=== PATIENT | male | born 1990 | race Two or more races ===

== ENCOUNTER 2016-06-27 12:54 | Emergency (ER) | payer OTHER ==
[~2016-06-27] VITALS: Ht 170.2 cm; Wt 65.8 kg
[~2016-06-27 12:54] MED LIST: LANTUS SOL100 UNIT/1 SUBQ
--- NOTE | 2016-06-27 13:14 | Emergency Room Report ---
History of Present Illness General Chief Complaint: Pain Source: Patient, EMS (LEON SUAREZ.Raeann) Present Illness HPI Patient presents by paramedics escorted by police as well Does initially a report of possible suicidal report of the police at this time reported the patient was essentially stating that he wanted to get attention from the family Patient is a history of being at [facility] for several days and discharged home this past Tuesday Reports that he was kicked out of his house today Denies any headache denies any chest pain or shortness of breath Patient has continued edema in both lower extremities Reports that he was recently diagnosed with gallstones as well (LEON SUAREZ.Sherri.) Allergies: Coded Allergies: No Known Allergies (Unverified , 02/18/16) Patient History Past Medical History: see triage record Pertinent Family History: none Reviewed Nursing Documentation: PMH: Agreed, PSxH: Agreed (LEON SUAREZ.Raeann) Nursing Documentation-PMH Hx Diabetes: Yes Hx Cancer: Yes - thyroid Hx Gastrointestinal Problems: Yes - gall stones (LEON SUAREZ.Raeann) Review of Systems All Other Systems: negative except mentioned in HPI (LEON SUAREZ.Raeann) Physical Exam Vital Signs Date Time Temp Pulse Resp B/P Pulse Ox O2 Delivery O2 Flow Rate FiO2 06/27/16 12:33 98.1 83 16 95/65 100 Room Air Sp02 EP Interpretation: reviewed, normal General Appearance: other - Patient appears pale, otherwise in no acute distress Head: normocephalic, atraumatic Eyes: bilateral eye EOMI, bilateral eye PERRL ENT: hearing grossly normal, normal pharynx, TMs + canals normal, uvula midline Neck: full range of motion, supple, no meningismus, no bony tend Respiratory: lungs clear, normal breath sounds, no rhonchi, no respiratory distress, no retraction, no accessory muscle use Cardiovascular #1: normal peripheral pulses, regular rate, rhythm, no gallop, no JVD, no murmur Gastrointestinal: normal bowel sounds, non tender, soft, no mass, no organomegaly, non-distended, no guarding, no hernia, no pulsatile mass, no rebound Genitourinary: no CVA tenderness Musculoskeletal: normal inspection Neurologic: oriented x3, responsive, catering manager III-XII nml as tested, motor strength/ tone normal, sensory intact Psychiatric: mood/affect normal Skin: pallor, other - Dependent edema in both lower extremities Lymphatic: normal inspection, no adenopathy (LEON SUAREZ D.O.) Medical Decision Making Diagnostic Impression: Primary Impression: Diabetes Qualified Codes: E10.8 - Type 1 diabetes mellitus with unspecified complications Additional Impressions: Abdominal pain Qualified Codes: R10.9 - Unspecified abdominal pain Venous disease ER Course Patient presents with somewhat of a mixed picture Initially was question of possible suicidal thoughts Patient adamantly denies at this time also denied this to the police department Patient's medical questions sounds to be fairly chronic in nature Patient has had recent hospitalization Also has insulin-dependent diabetes with peripheral edema Patient has had previous hypoglycemia at this time signs blood work is obtained (LEON SUAREZ D.O.) ER Course See full note from Dr. Suarez. Patient's sister here. Patient improved. No SI or HI. Wants to f/u with PMD. Chronic illness - no acute medical or psychologic emergency at this time. Patient stable for outpatient observation and treatment. Laboratory Tests Test 06/27/16 13:15 06/27/16 13:45 White Blood Count 7.0 K/UL (4.8-10.8) Red Blood Count 3.90 M/UL (4.70-6.10) L Hemoglobin 12.2 G/DL (14.2-18.0) L Hematocrit 37.3 % (42.0-52.0) L Mean Corpuscular Volume 96 FL (80-99) Mean Corpuscular Hemoglobin 31.4 PG (27.0-31.0) H Mean Corpuscular Hemoglobin Concent 32.8 G/DL (32.0-36.0) Red Cell Distribution Width 11.4 % (11.6-14.8) L Platelet Count 192 K/UL (150-450) Mean Platelet Volume 5.6 FL (6.5-10.1) L Neutrophils (%) (Auto) 65.2 % (45.0-75.0) Lymphocytes (%) (Auto) 24.2 % (20.0-45.0) Monocytes (%) (Auto) 7.4 % (1.0-10.0) Eosinophils (%) (Auto) 1.6 % (0.0-3.0) Basophils (%) (Auto) 1.6 % (0.0-2.0) Sodium Level 141 mEQ/L (135-145) Potassium Level 4.0 mEQ/L (3.4-4.9) Chloride Level 98 mEQ/L (98-107) Carbon Dioxide Level 29 mEQ/L (20-30) Anion Gap 14 (5-15) Blood Urea Nitrogen 19 mg/dL (7-23) Creatinine 0.8 mg/dL (0.7-1.2) Estimate Glomerular Filtration Rate > 60 mL/min (>60) Glucose Level 219 mg/dL (74-106) H Calcium Level 6.1 mg/dL (8.6-10.2) L Total Bilirubin 0.6 mg/dL (0.0-1.2) Aspartate Amino Transferase (AST) 20 U/L (5-40) Alanine Aminotransferase (ALT) 11 U/L (3-41) Alkaline Phosphatase 89 U/L (40-129) Total Creatine Kinase 316 U/L (38-174) H Creatine Kinase MB 4.3 ng/mL (< 6.7) Creatine Kinase MB Relative Index 1.3 Troponin I < 0.30 ng/mL (<=0.30) Total Protein 6.2 g/dL (6.6-8.7) L Albumin 3.9 g/dL (3.5-5.2) Globulin 2.3 g/dL Albumin/Globulin Ratio 1.6 (1.0-2.7) Salicylates Level < 1 mg/dL (10-30) L Acetaminophen Level < 10 ug/mL (10-30) L Serum Alcohol 33 mg/dL Urine Opiates Screen Negative (NEGATIVE) Urine Barbiturates Screen Negative (NEGATIVE) Phencyclidine (PCP) Screen Negative (NEGATIVE) Urine Amphetamines Screen Negative (NEGATIVE) Urine Benzodiazepines Screen Negative (NEGATIVE) Urine Cocaine Screen Negative (NEGATIVE) Urine Marijuana (THC) Screen Positive (NEGATIVE) H (Stephen Wilburn M.D.) Last Vital Signs Date Time Temp Pulse Resp B/P Pulse Ox O2 Delivery O2 Flow Rate FiO2 06/27/16 12:33 98.1 83 16 95/65 100 Room Air (LEON SUAREZ.Raeann) Last Vital Signs Date Time Temp Pulse Resp B/P Pulse Ox O2 Delivery O2 Flow Rate FiO2 06/27/16 18:09 98.1 92 16 95/48 98 Room Air Status: improved (Stephen Wilburn M.D.) Disposition: HOME, SELF-CARE Condition: Improved Scripts Mag Hydrox/Al Hydrox/Simeth (MAALOX MAXIMUM STRENGTH SUSP) 355 Ml Oral.susp 30 ML PO Q6HR, #240 ML Prov: Stephen Wilburn M.D. 06/27/16 Acetaminophen (Tylenol) 325 Mg Tablet 650 MG ORAL Q6H Y for Prn Pain/Headache/Temp > 101, #30 TAB 0 Refills Prov: Stephen Wilburn M.D. 06/27/16 LEON SUAREZ D.O. Jun 27, 2016 13:14 Stephen Wilburn M.D. Jun 27, 2016 17:28
[2016-06-27 13:44] LABS: BASOPHILS % (AUTO) 1.6 % (0.0-2.0); EOSINOPHILS % (AUTO) 1.6 % (0.0-3.0); LYMPHOCYTES % (AUTO) 24.2 % (20.0-45.0); MEAN CORPUSCULAR HEMOGLOBIN 31.4 PG (27.0-31.0); MEAN CORPUSCULAR HGB CONC 32.8 G/DL (32.0-36.0); MEAN CORPUSCULAR VOLUME 96 FL (80-99); MEAN PLATELET VOLUME 5.6 FL (6.5-10.1); MONOCYTES % (AUTO) 7.4 % (1.0-10.0); NEUTROPHILS % (AUTO) 65.2 % (45.0-75.0); PLATELET COUNT 192 K/UL (150-450); RED CELL DISTRIBUTION WIDTH 11.4 % (11.6-14.8)
[2016-06-27 13:58] LABS: TROPONIN I < 0.30 ng/mL (<=0.30)
[2016-06-27 14:01] LABS: ACETAMINOPHEN < 10 ug/mL (10-30); ALANINE AMINOTRANSFERASE 11 U/L (3-41); ALBUMIN/GLOBULIN RATIO 1.6 (1.0-2.7); ALCOHOL 33 mg/dL; ANION GAP 14 (5-15); ASPARTATE AMINO TRANSFERASE 20 U/L (5-40); CALCIUM 6.1 mg/dL (8.6-10.2); CARBON DIOXIDE 29 mEQ/L (20-30); CHLORIDE 98 mEQ/L (98-107); CREATININE 0.8 mg/dL (0.7-1.2); GLOMERULAR FILTRATION RATE > 60 mL/min (>60); HEMOLYSIS 9; SODIUM 141 mEQ/L (135-145); TOTAL PROTEIN 6.2 g/dL (6.6-8.7)
[2016-06-27 14:11] LABS: CKMB 4.3 ng/mL (< 6.7)
[2016-06-27] MEDS ORDERED: LEVOTHYROXINE150 MCG ORAL (14:52)
[2016-06-27 15:49] VITALS: BP 95/48
[2016-06-27] MEDS ORDERED: TYLENOL325 MG ORAL (17:39)
[2016-06-27] MEDS ORDERED: MAALOX MAXIMUM355 M1 PO (17:39)
[2016-06-27 18:09] VITALS: BP 95/48
--- NOTE | 2016-06-28 11:59 | Diagnostic Imaging Report ---
Indication: SOB Technique: One view of the chest Comparison: none Findings: The lung apices are excluded from the imaged. Surgical clips are seen in the upper mediastinum. The lungs and pleural spaces are clear. Heart size is normal. Impression: No definite acute process
== END 2016-06-27 18:11 | disposition home or self-care (01) ==
LOC: EDBD 12:54 → EMR 13:29
DX: E10.8 Type 1 diabetes mellitus with unspecified complications (principal); R10.9 Unspecified abdominal pain; I87.2 Venous insufficiency (chronic) (peripheral); Z85.850 Personal history of malignant neoplasm of thyroid
CPT/HCPCS: 36415; 71010; 80053; 80300; 80329; 82550; 82553; 82962; 84484; 85025; 93005; 99284

== ENCOUNTER 2016-11-29 06:28 | Emergency (ER) | payer OTHER ==
[~2016-11-29] VITALS: Ht 154.9 cm; Wt 49.9 kg
[~2016-11-29 06:28] MED LIST changes: +LEVOTHYROXINE150 MCG ORAL; +MAALOX MAXIMUM355 M1 PO; +TYLENOL325 MG ORAL
[2016-11-29 06:52] VITALS: BP 106/71
[2016-11-29] MEDS ORDERED: Lidocaine 1% 10mg/ml/Epi 0.005mg/ml 30ml vial INJ ONE (07:15)
[2016-11-29] MEDS ORDERED: BACTRIM DS TAB1 EAC1 ORAL (07:33)
[2016-11-29] MEDS ORDERED: KEFLEX500 MG ORAL (07:33)
[2016-11-29] MEDS ORDERED: Cephalexin 500mg cap ORAL ONE (07:45)
[2016-11-29] MEDS ORDERED: Bactrim DS (160mg/800mg) tab ORAL ONE (07:45)
[2016-11-29] MEDS ORDERED: ceFAZolin 1gm/50ml Premix 50 ML IV ONE (07:45)
--- NOTE | 2016-11-29 07:46 | Emergency Room Report ---
History of Present Illness General Chief Complaint: Skin Rash/Abscess Source: Patient Present Illness HPI Patient is a 26-year-old male presented after increased redness and swelling to the left collarbone area this had been present for several days. Patient's type I diabetic. He reports having prior thyroidectomy. He reports having increased pain and swelling to the area after attempting to incise area with lancet himself. Patient denied fever.The patient had reported prior history of leukemia as well as thyroid cancer Allergies: Coded Allergies: No Known Allergies (Unverified , 02/18/16) Patient History Past Medical History: see triage record Reviewed Nursing Documentation: PMH: Agreed, PSxH: Agreed Nursing Documentation-PMH Past Medical History: No History, Except For Hx Diabetes: Yes Hx Cancer: Yes - thyroid Hx Gastrointestinal Problems: Yes - gall stones Review of Systems All Other Systems: negative except mentioned in HPI Physical Exam Vital Signs Date Time Temp Pulse Resp B/P (MAP) Pulse Ox O2 Delivery O2 Flow Rate FiO2 11/29/16 06:37 98.2 106 21 87/53 98 Room Air Sp02 EP Interpretation: reviewed, normal General Appearance: normal inspection, well appearing, no apparent distress, alert, GCS 15, Chronically Ill Head: atraumatic ENT: normal ENT inspection, hearing grossly normal, normal voice Neck: normal inspection, full range of motion, supple, no bony tend Respiratory: normal inspection, lungs clear, normal breath sounds, no respiratory distress, no retraction, no wheezing Cardiovascular #1: regular rate, rhythm, no edema Gastrointestinal: normal inspection, normal bowel sounds, non tender, soft, no guarding, no hernia Genitourinary: no CVA tenderness Musculoskeletal: normal inspection, back normal, normal range of motion Neurologic: normal inspection, alert, responsive, speech normal Psychiatric: normal inspection, judgement/insight normal, mood/affect normal Skin: other - infected area to left side of chest near sternum with slight erythema Medical Decision Making Diagnostic Impression: Primary Impression: Abscess Additional Impression: Diabetes ER Course Patient presented for skin rash. Differential diagnosis included was not limited to abscess, cellulitis, folliculitis, Fourniere's gangrene, diabetic ketoacidosis among others. Because of complexity of patient's case laboratory testing and imaging studies were ordered.The patient's initial blood sugar was noted to be elevated approximately 400 the patient started on IV fluids. patient was givenprescription for antibiotics. The patient did not appear to be in diabetic ketoacidosis. The patient stated he return if he began having any worsening symptoms or concerns Labs Test 11/29/16 08:15 White Blood Count 9.3 K/UL (4.8-10.8) Red Blood Count 4.65 M/UL (4.70-6.10) Hemoglobin 15.0 G/DL (14.2-18.0) Hematocrit 44.1 % (42.0-52.0) Mean Corpuscular Volume 95 FL (80-99) Mean Corpuscular Hemoglobin 32.2 PG (27.0-31.0) Mean Corpuscular Hemoglobin Concent 34.0 G/DL (32.0-36.0) Red Cell Distribution Width 12.6 % (11.6-14.8) Platelet Count 165 K/UL (150-450) Mean Platelet Volume 5.8 FL (6.5-10.1) Neutrophils (%) (Auto) 70.9 % (45.0-75.0) Lymphocytes (%) (Auto) 21.0 % (20.0-45.0) Monocytes (%) (Auto) 5.5 % (1.0-10.0) Eosinophils (%) (Auto) 1.8 % (0.0-3.0) Basophils (%) (Auto) 0.7 % (0.0-2.0) Sodium Level 139 mEQ/L (135-145) Potassium Level 4.2 mEQ/L (3.4-4.9) Chloride Level 93 mEQ/L (98-107) Carbon Dioxide Level 33 mEQ/L (20-30) Anion Gap 13 (5-15) Blood Urea Nitrogen 22 mg/dL (7-23) Creatinine 0.8 mg/dL (0.7-1.2) Estimat Glomerular Filtration Rate > 60 mL/min (>60) Glucose Level 395 mg/dL (74-106) Calcium Level 7.4 mg/dL (8.6-10.2) Magnesium Level 1.7 mg/dL (1.7-2.5) Total Bilirubin 0.7 mg/dL (0.0-1.2) Aspartate Amino Transf (AST/SGOT) 29 U/L (5-40) Alanine Aminotransferase (ALT/SGPT) 67 U/L (3-41) Alkaline Phosphatase 150 U/L (40-129) Total Protein 7.5 g/dL (6.6-8.7) Albumin 4.3 g/dL (3.5-5.2) Globulin 3.2 g/dL Albumin/Globulin Ratio 1.3 (1.0-2.7) Acetone Level Negative (NEGATIVE) Last Vital Signs Date Time Temp Pulse Resp B/P (MAP) Pulse Ox O2 Delivery O2 Flow Rate FiO2 11/29/16 06:52 98.2 94 14 106/71 100 Room Air Status: improved Disposition: HOME, SELF-CARE Condition: Stable Scripts Hydrocodone Bit/Acetaminophen 5-325* (NORCO 5-325*) 1 Each Tablet 1 TAB ORAL Q6H Y for For Pain, #10 TAB 0 Refills Prov: To West 11/29/16 Cephalexin* (KEFLEX*) 500 Mg Capsule 500 MG ORAL Q6H, #28 CAP 0 Refills Prov: To West 11/29/16 Trimethoprim/Sulfamethoxazole 160/800* (BACTRIM DS TABLET*) 1 Each Tablet 1 TAB ORAL Q12H, #14 TAB 0 Refills Prov: To West 11/29/16 Patient Instructions: Abscess To West Nov 29, 2016 07:46
[2016-11-29 08:46] VITALS: BP 98/63
[2016-11-29 08:55] LABS: BASOPHILS % (AUTO) 0.7 % (0.0-2.0); EOSINOPHILS % (AUTO) 1.8 % (0.0-3.0); MEAN CORPUSCULAR HEMOGLOBIN 32.2 PG (27.0-31.0); MEAN CORPUSCULAR VOLUME 95 FL (80-99); MEAN PLATELET VOLUME 5.8 FL (6.5-10.1); MONOCYTES % (AUTO) 5.5 % (1.0-10.0); NEUTROPHILS % (AUTO) 70.9 % (45.0-75.0); PLATELET COUNT 165 K/UL (150-450); RED BLOOD COUNT 4.65 M/UL (4.70-6.10); RED CELL DISTRIBUTION WIDTH 12.6 % (11.6-14.8); WHITE BLOOD COUNT 9.3 K/UL (4.8-10.8)
[2016-11-29 09:11] LABS: ALANINE AMINOTRANSFERASE 67 U/L (3-41); ALBUMIN/GLOBULIN RATIO 1.3 (1.0-2.7); ANION GAP 13 (5-15); ASPARTATE AMINO TRANSFERASE 29 U/L (5-40); CALCIUM 7.4 mg/dL (8.6-10.2); CARBON DIOXIDE 33 mEQ/L (20-30); CHLORIDE 93 mEQ/L (98-107); CREATININE 0.8 mg/dL (0.7-1.2); GLOMERULAR FILTRATION RATE > 60 mL/min (>60); HEMOLYSIS 4; MAGNESIUM 1.7 mg/dL (1.7-2.5); POTASSIUM 4.2 mEQ/L (3.4-4.9); SODIUM 139 mEQ/L (135-145); TOTAL PROTEIN 7.5 g/dL (6.6-8.7)
[2016-11-29] MEDS ORDERED: NORCO 5-325 TA1 EACH ORAL (09:22)
[2016-11-29 09:40] VITALS: BP 99/62
== END 2016-11-29 10:31 | disposition home or self-care (01) ==
LOC: EMR 07:44 → EDBEDREQ 08:48 → CANBEDREQ 09:34 → EMR 10:31
DX: L02.213 Cutaneous abscess of chest wall (principal); E11.9 Type 2 diabetes mellitus without complications; Z85.850 Personal history of malignant neoplasm of thyroid
CPT/HCPCS: 36415; 80053; 82009; 83735; 85025; 93005; 96361; 96365; 99284; J0690

== ENCOUNTER 2017-03-08 21:54 | Emergency (ER) | payer OTHER ==
[~2017-03-08] VITALS: Ht 154.9 cm; Wt 45.4 kg
[~2017-03-08 21:54] MED LIST changes: +BACTRIM DS TAB1 EAC1 ORAL; +KEFLEX500 MG ORAL; +NORCO 5-325 TA1 EACH ORAL
[2017-03-08 22:30] VITALS: BP 108/68
[2017-03-08] MEDS ORDERED: Lidocaine 1% Plain 30 ml INJ ONE (23:00)
[2017-03-08] MEDS ORDERED: Bactrim-DS 1 tab ORAL ONE (23:00)
[2017-03-08] MEDS ORDERED: Norco 5mg/325mg tab ORAL ONE (23:45)
[2017-03-08] MEDS ORDERED: BACTRIM DS TAB1 EAC1 ORAL (23:59)
[2017-03-08] MEDS ORDERED: MUPIROCIN22 GM TOPIC (23:59)
[2017-03-08] MEDS ORDERED: HYDROCODON-ACE1 EA15 ORAL (23:59)
[2017-03-09] VITALS: BP 110/69
--- NOTE | 2017-03-09 | Emergency Room Report ---
History of Present Illness General Chief Complaint: Skin Rash/Abscess Source: Patient Present Illness HPI Is a 26-year-old male with history of thyroid cancer and diabetes. He presents with chief complaint of an abscess to the right axilla. His been there for about a week. Some drainage but now more swelling. Also no swelling. No fever or chills. No nausea no vomiting. Similar symptom in the past. Allergies: Coded Allergies: No Known Allergies (Unverified , 02/18/16) Patient History Past Medical History: see triage record, old chart reviewed, DM Past Surgical History: other Pertinent Family History: none Social History: Denies: smoking Immunizations: other Reviewed Nursing Documentation: PMH: Agreed, PSxH: Agreed Nursing Documentation-PMH Hx Diabetes: Yes Hx Cancer: Yes - thyroid Hx Gastrointestinal Problems: Yes - gall stones Review of Systems Eye: Denies: eye pain, blurred vision ENT: Denies: ear pain, nose congestion, throat swelling Respiratory: Denies: cough, shortness of breath Cardiovascular: Denies: chest pain, palpitations Gastrointestinal: Denies: abdominal pain, diarrhea, nausea, vomiting Musculoskeletal: Denies: back pain, joint pain Skin: Denies: rash Neurological: Denies: headache, numbness Endocrine: Denies: increased thirst, increased urine Hematologic/Lymphatic: Denies: easy bruising All Other Systems: negative except mentioned in HPI Physical Exam Vital Signs Date Time Temp Pulse Resp B/P (MAP) Pulse Ox O2 Delivery O2 Flow Rate FiO2 03/08/17 22:01 98.1 94 12 93/63 99 Room Air vitals normal Sp02 EP Interpretation: reviewed, normal General Appearance: no apparent distress, alert, cachetic, Chronically Ill Head: normocephalic, atraumatic Eyes: bilateral eye PERRL, bilateral eye EOMI ENT: hearing grossly normal, normal pharynx, other - Nose with diffuse erythema Edema to the tip of the nose. Left nostril with small abscess. Neck: full range of motion, supple, no meningismus Respiratory: chest non-tender, lungs clear, normal breath sounds Cardiovascular #1: regular rate, rhythm, no murmur Gastrointestinal: normal bowel sounds, non tender, no mass, no organomegaly, no bruit, non-distended Musculoskeletal: back normal, gait/station normal, normal range of motion, other - Right axilla with a 2-3 cm indurated area of central necrotic area with small drainage. Psychiatric: mood/affect normal Skin: warm/dry Procedures Incision and Drainage Incision and Drainage : Consent: Verbal Site: Right axilla and nose Blade Size: 11 I & D Procedure: betadine prep, gauze wick placed Wound Location: upper extremity Anesthesia: 1% Lidocaine Volume Anesthetic (ccs): 5 Patient Tolerated: Well Complications: None Progress Area clean with chlorhexidine. Local anesthetic with 1% lidocaine without epinephrine. After anesthesia I made a 2 cm incision over the right axilla. There was moderate amount of pus expressed. Loculated area broken up. Area irrigated. Packing placed. Patient tolerated procedure without a problem. Also inject a small amount of lidocaine to the left nares. I made a small incision and there was small amount of pus expressed. Patient tolerated procedure without a problem. Medical Decision Making Diagnostic Impression: Primary Impression: Nasal abscess Additional Impression: Abrasion of right axilla with infection Qualified Codes: S40.811A - Abrasion of right upper arm, initial encounter; L08.9 - Local infection of the skin and subcutaneous tissue, unspecified ER Course Patient presents with an abscess to his 11 naris. Most likely MRSA. Dose of Bactrim given here. No evidence of systemic spread. We'll discharge home Last Vital Signs Date Time Temp Pulse Resp B/P (MAP) Pulse Ox O2 Delivery O2 Flow Rate FiO2 03/08/17 22:30 98.2 98 15 108/68 97 Room Air Status: improved Disposition: HOME, SELF-CARE Condition: Stable Scripts Mupirocin* (MUPIROCIN*) 22 Gm Oint...g. 1 APPLIC TOPIC THREE TIMES A DAY, #22 GM Prov: PAU HERBERT M.D. 03/08/17 Hydrocodone/Acetaminophen 5-325* (HYDROCODONE/ACETAMINOPHEN 5-325*) 1 Each Tablet 1 TAB ORAL Q6H Y for For Pain, #15 TAB 0 Refills Prov: PAU HERBERT M.D. 03/08/17 Trimethoprim/Sulfamethoxazole 160/800* (BACTRIM DS TABLET*) 1 Each Tablet 1 TAB ORAL Q12H, #14 TAB 0 Refills Prov: PAU HERBERT M.D. 03/08/17 Referrals: NON PHYSICIAN (PCP) Patient Instructions: Abscess Additional Instructions: Followup in 2 days for recheck. Either with your doctor or come back here. Return if symptom worsen. PAU HERBERT M.D. Mar 09, 2017 00:00
[2017-03-09 00:05] VITALS: BP 110/69
== END 2017-03-09 00:05 | disposition home or self-care (01) ==
LOC: EMR 22:27
DX: J34.0 Abscess, furuncle and carbuncle of nose (principal); L02.411 Cutaneous abscess of right axilla; S40.811A Abrasion of right upper arm, initial encounter; L08.9 Local infection of the skin and subcutaneous tissue, unspecified; X58.XXXA Exposure to other specified factors, initial encounter; Y92.9 Unspecified place or not applicable; E11.9 Type 2 diabetes mellitus without complications; Z85.850 Personal history of malignant neoplasm of thyroid
CPT/HCPCS: 10060; 99284; J2001

== ENCOUNTER 2017-07-16 10:35 | Emergency (ER) | payer OTHER ==
[~2017-07-16] VITALS: Ht 154.9 cm; Wt 49.9 kg
[~2017-07-16 10:35] MED LIST changes: +HYDROCODON-ACE1 EA15 ORAL; +MUPIROCIN22 GM TOPIC
[2017-07-16] MEDS ORDERED: Norco 5mg/325mg tab ORAL ONE (11:00)
[2017-07-16] MEDS ORDERED: Ketorolac 60mg Inj IM ONE (11:00)
--- NOTE | 2017-07-16 11:31 | Diagnostic Imaging Report ---
RIGHT SHOULDER, Views INDICATION: Trauma COMPARISON: None FINDINGS: 4 views of the right shoulder are obtained. Fracture of the proximal humeral diaphysis. There is anterior dislocation of the humeral head at the glenohumeral joint space. Further evaluation can be obtained with CT. Soft tissues are within normal limits. IMPRESSION: Fracture of the proximal humeral diaphysis. There is anterior dislocation of the humeral head at the glenohumeral joint space. Further evaluation can be obtained with CT.
--- NOTE | 2017-07-16 11:41 | Emergency Room Report ---
History of Present Illness General Chief Complaint: Pain Source: Patient Present Illness HPI The patient states that he was roughhousing and wrestling with his brother and he was thrown onto his right shoulder. He states he has pain in his shoulder and is unable to move his shoulder. He has no other injuries or complaints. Allergies: Coded Allergies: No Known Allergies (Unverified , 02/18/16) Patient History Past Medical History: see triage record, DM, other - Hx of leukemia Past Surgical History: other - Thyroidectomy Social History: Denies: smoking, alcohol use, drug use Reviewed Nursing Documentation: PMH: Agreed; PSxH: Agreed Nursing Documentation-PMH Hx Diabetes: Yes Hx Cancer: Yes - thyroid Hx Gastrointestinal Problems: Yes - gall stones Review of Systems All Other Systems: negative except mentioned in HPI Physical Exam Vital Signs Date Time Temp Pulse Resp B/P (MAP) Pulse Ox O2 Delivery O2 Flow Rate FiO2 07/16/17 10:37 97.0 99 14 86/55 100 Room Air 97.0 Sp02 EP Interpretation: reviewed, normal General Appearance: no apparent distress, alert, GCS 15, non-toxic Head: normocephalic, atraumatic Eyes: bilateral eye normal inspection, bilateral eye PERRL ENT: hearing grossly normal, normal pharynx, no angioedema, normal voice Neck: full range of motion, supple/symm/no masses Respiratory: chest non-tender, lungs clear, normal breath sounds, no respiratory distress, no retraction, no accessory muscle use, speaking full sentences Cardiovascular #1: regular rate, rhythm, no edema Rectal: deferred Musculoskeletal: back normal, gait/station normal, other - R. proximal humerus with deformity, unable to ROM R. shoudler secondary to pain. Neurologic: alert, oriented x3, responsive, motor strength/tone normal, sensory intact, speech normal Psychiatric: judgement/insight normal, memory normal, mood/affect normal, no suicidal/homicidal ideation Skin: normal color, no rash, warm/dry, well hydrated Medical Decision Making Diagnostic Impression: Primary Impression: Humerus fracture ER Course This patient has a proximal right humerus fracture. The fracture is displaced. Patient was placed in a sling. I discussed the case with the on-call orthopedic surgeon Dr. Lugo. He will follow-up with this patient in his office in 2 days. I will provide the patient pain control medications. Patient is neurovascularly intact. The patient is given close return precautions and follow-up instructions. Other X-Ray Diagnostic Results Other X-Ray Diagnostic Results : X-Ray ordered: R. shoulder xray # of Views/Limited Vs Complete: Complete Indication: Pain EP Interpretation: Yes Interpretation: other - Displaced proximal humerus fracture. Impression: Other - See above Electronically Signed by: Aaron Last Vital Signs Date Time Temp Pulse Resp B/P (MAP) Pulse Ox O2 Delivery O2 Flow Rate FiO2 07/16/17 10:37 97.0 99 14 86/55 100 Room Air 97.0 Disposition: HOME, SELF-CARE Condition: Stable Referrals: NON PHYSICIAN (PCP) JULES CLAIRE D.O. July 16, 2017 11:41
[2017-07-16] MEDS ORDERED: NORCO 5-325 TA1 EACH ORAL (11:51)
[2017-07-16] MEDS ORDERED: IBUPROFEN800 MG ORAL (11:51)
[2017-07-16 12:30] VITALS: BP 97/63
== END 2017-07-16 12:33 | disposition home or self-care (01) ==
LOC: EMR 10:46
DX: S42.291A Other displaced fracture of upper end of right humerus, initial encounter for closed fracture (principal); Y93.72 Activity, wrestling; Y92.9 Unspecified place or not applicable; E11.9 Type 2 diabetes mellitus without complications; Z85.850 Personal history of malignant neoplasm of thyroid
CPT/HCPCS: 96372; 99283

== ENCOUNTER 2017-08-23 23:51 | Emergency (ER) | payer OTHER ==
[~2017-08-23] VITALS: Ht 154.9 cm; Wt 47.6 kg
[~2017-08-23 23:51] MED LIST changes: +IBUPROFEN800 MG ORAL
[2017-08-24 00:35] VITALS: BP 124/62
[2017-08-24] MEDS ORDERED: cefTRIAXone 1 GM in NS 55 ML IVPB ONE (01:00)
[2017-08-24] MEDS ORDERED: Sodium Chloride 500ML 500 ML IV ONE (01:00)
--- NOTE | 2017-08-24 01:07 | Emergency Room Report ---
History of Present Illness General Chief Complaint: General Complaint Present Illness HPI Patient is a 27-year-old male presented after increased generalized weakness. Patient poorly had been recently diagnosed with urinary tract infection. Patient had been noted to have prior history of thyroid cancer. He had also had prior history of type 2 diabetes. The patient was noted to have episodes of generalized weakness the past he had previous thyroidectomy. Allergies: Coded Allergies: No Known Allergies (Unverified , 02/18/16) Patient History Past Medical History: see triage record Reviewed Nursing Documentation: PMH: Agreed; PSxH: Agreed Nursing Documentation-PMH Hx Diabetes: Yes Hx Cancer: Yes - lukemia and thyroid Hx Gastrointestinal Problems: Yes - gall stones Review of Systems All Other Systems: negative except mentioned in HPI Physical Exam Vital Signs Date Time Temp Pulse Resp B/P (MAP) Pulse Ox O2 Delivery O2 Flow Rate FiO2 08/23/17 23:55 98.1 94 18 75/53 99 Room Air 98.1 Sp02 EP Interpretation: reviewed, normal General Appearance: normal inspection, well appearing, no apparent distress, alert, GCS 15, Chronically Ill Head: atraumatic ENT: normal ENT inspection, hearing grossly normal, normal voice Neck: normal inspection, full range of motion, supple, no bony tend Respiratory: normal inspection, lungs clear, normal breath sounds, no respiratory distress, no retraction, no wheezing Cardiovascular #1: regular rate, rhythm, no edema Gastrointestinal: normal inspection, normal bowel sounds, non tender, soft, no guarding, no hernia Genitourinary: no CVA tenderness Musculoskeletal: normal inspection, back normal, normal range of motion Neurologic: normal inspection, alert, responsive, speech normal Psychiatric: normal inspection, judgement/insight normal, mood/affect normal Skin: normal inspection, normal color, no rash Medical Decision Making Diagnostic Impression: Primary Impression: Hypothyroidism ER Course Patient presented for generalized weakness. Differential diagnosis included was not limited to anemia, urinary tract infection, electrolyte abnormality, hypothyroidism, myocardial infarction, myasthenia gravis, dehydration, among others. Because of complexity of patient's case laboratory testing and imaging studies were ordered.The patient was noted to have missed several doses of his thyroid medication. TSH was noted to be markedly elevated. Other laboratory testing did not show any evidence of urinary infection. Patient showed no signs of diabetic ketoacidosis. The patient is advised to follow up with primary care doctor in 1-2 days. Patient is advised to return if any worsening condition or if any changes in status that are concerning. This report is dictated with [employer] storehouse clerk software which may occasionally lead to discrepancies related to use of this software. Labs Test 08/24/17 00:45 White Blood Count 5.2 K/UL (4.8-10.8) Red Blood Count 3.39 M/UL (4.70-6.10) Hemoglobin 10.7 G/DL (14.2-18.0) Hematocrit 31.7 % (42.0-52.0) Mean Corpuscular Volume 93 FL (80-99) Mean Corpuscular Hemoglobin 31.5 PG (27.0-31.0) Mean Corpuscular Hemoglobin Concent 33.6 G/DL (32.0-36.0) Red Cell Distribution Width 11.7 % (11.6-14.8) Platelet Count 161 K/UL (150-450) Mean Platelet Volume 6.1 FL (6.5-10.1) Neutrophils (%) (Auto) 45.5 % (45.0-75.0) Lymphocytes (%) (Auto) 42.0 % (20.0-45.0) Monocytes (%) (Auto) 7.4 % (1.0-10.0) Eosinophils (%) (Auto) 3.1 % (0.0-3.0) Basophils (%) (Auto) 2.0 % (0.0-2.0) D-Dimer 2.97 mg/L FEU (0.00-0.49) Urine Color Pale yellow Urine Appearance Clear Urine pH 6.5 (4.5-8.0) Urine Specific [place] 1.010 (1.005-1.035) Urine Protein 1+ (NEGATIVE) Urine Glucose (UA) Negative (NEGATIVE) Urine Ketones Negative (NEGATIVE) Urine Occult Blood 2+ (NEGATIVE) Urine Nitrite Negative (NEGATIVE) Urine Bilirubin Negative (NEGATIVE) Urine Urobilinogen Normal MG/DL (0.0-1.0) Urine Leukocyte Esterase 1+ (NEGATIVE) Urine RBC 2-4 /HPF (0 - 0) Urine WBC 0-2 /HPF (0 - 0) Urine Squamous Epithelial Cells Few /LPF (NONE/OCC) Urine Bacteria None /HPF (NONE) Sodium Level 134 MMOL/L (136-145) Potassium Level 4.5 MMOL/L (3.5-5.1) Chloride Level 99 MMOL/L (98-107) Carbon Dioxide Level 32 MMOL/L (21-32) Anion Gap 3 mmol/L (5-15) Blood Urea Nitrogen 23 mg/dL (7-18) Creatinine 1.4 MG/DL (0.55-1.30) Estimat Glomerular Filtration Rate 59.9 mL/min (>60) Glucose Level 111 MG/DL (74-106) Calcium Level 7.2 MG/DL (8.5-10.1) Total Bilirubin 0.7 MG/DL (0.2-1.0) Aspartate Amino Transf (AST/SGOT) 23 U/L (15-37) Alanine Aminotransferase (ALT/SGPT) 24 U/L (12-78) Alkaline Phosphatase 94 U/L (46-116) Troponin I 0.000 ng/mL (0.000-0.056) Total Protein 6.9 G/DL (6.4-8.2) Albumin 3.7 G/DL (3.4-5.0) Globulin 3.2 g/dL Albumin/Globulin Ratio 1.2 (1.0-2.7) Thyroid Stimulating Hormone (TSH) 46.017 uiU/mL (0.358-3.740) Urine Opiates Screen Negative (NEGATIVE) Urine Barbiturates Screen Negative (NEGATIVE) Phencyclidine (PCP) Screen Negative (NEGATIVE) Urine Amphetamines Screen Negative (NEGATIVE) Urine Benzodiazepines Screen Negative (NEGATIVE) Urine Cocaine Screen Negative (NEGATIVE) Urine Marijuana (THC) Screen Positive (NEGATIVE) Serum Alcohol < 3 mg/dL Last Vital Signs Date Time Temp Pulse Resp B/P (MAP) Pulse Ox O2 Delivery O2 Flow Rate FiO2 08/23/17 23:55 98.1 94 18 75/53 99 Room Air 98.1 Status: improved Disposition: HOME, SELF-CARE Condition: Stable Referrals: NON PHYSICIAN (PCP) To [facility] MD Aug 24, 2017 01:07
[2017-08-24 01:26] LABS: EOSINOPHILS % (AUTO) 3.1 % (0.0-3.0); HEMATOCRIT 31.7 % (42.0-52.0); HEMOGLOBIN 10.7 G/DL (14.2-18.0); MEAN CORPUSCULAR VOLUME 93 FL (80-99); MONOCYTES % (AUTO) 7.4 % (1.0-10.0); NEUTROPHILS % (AUTO) 45.5 % (45.0-75.0); PLATELET COUNT 161 K/UL (150-450); RED BLOOD COUNT 3.39 M/UL (4.70-6.10); RED CELL DISTRIBUTION WIDTH 11.7 % (11.6-14.8); WHITE BLOOD COUNT 5.2 K/UL (4.8-10.8)
[2017-08-24 01:29] LABS: ANION GAP 3 mmol/L (5-15); BLOOD UREA NITROGEN 23 mg/dL (7-18); CALCIUM 7.2 MG/DL (8.5-10.1); CARBON DIOXIDE 32 MMOL/L (21-32); CHLORIDE 99 MMOL/L (98-107); CREATININE 1.4 MG/DL (0.55-1.30); POTASSIUM 4.5 MMOL/L (3.5-5.1); SODIUM 134 MMOL/L (136-145)
[2017-08-24 01:35] VITALS: BP 118/66
[2017-08-24 01:35] LABS: APPEARANCE,URINE CLEAR; BILIRUBIN, URINE NEGATIVE (NEGATIVE); COLOR,URINE PALE YELLOW; GLUCOSE, URINE (UA) NEGATIVE (NEGATIVE); KETONES,URINE NEGATIVE (NEGATIVE); LEUKOCYTE ESTERASE ,URINE 1+ (NEGATIVE); NITRITE,URINE NEGATIVE (NEGATIVE); PH,URINE 6.5 (4.5-8.0); PROTEIN,URINE 1+ (NEGATIVE); UROBILINOGEN,URINE NORMAL MG/DL (0.0-1.0)
[2017-08-24 01:41] LABS: ALANINE AMINOTRANSFERASE 24 U/L (12-78); ALBUMIN 3.7 G/DL (3.4-5.0); ALBUMIN/GLOBULIN RATIO 1.2 (1.0-2.7); ALKALINE PHOSPHATASE 94 U/L (46-116); ASPARTATE AMINO TRANSFERASE 23 U/L (15-37); BILIRUBIN,TOTAL 0.7 MG/DL (0.2-1.0)
[2017-08-24 02:25] VITALS: BP 107/71
[2017-08-24 02:55] VITALS: BP 107/71
== END 2017-08-24 02:55 | disposition home or self-care (01) ==
LOC: EMR 08-24 00:26
DX: E03.9 Hypothyroidism, unspecified (principal); R53.1 Weakness; E11.9 Type 2 diabetes mellitus without complications; Z85.6 Personal history of leukemia
CPT/HCPCS: 36415; 80053; 80307; 80329; 81001; 84443; 84484; 85025; 85379; 93005; 96360; 96361; 99283; J0696; J7040

== ENCOUNTER 2017-09-13 13:34 | Emergency (ER) | payer OTHER ==
[~2017-09-13] VITALS: Ht 154.9 cm; Wt 47.2 kg
[2017-09-13 14:00] VITALS: BP 99/69
--- NOTE | 2017-09-13 14:29 | Emergency Room Report ---
History of Present Illness General Chief Complaint: Male Urogenital Problems Source: Patient, Medical Record Present Illness HPI 27-year-old male history of diabetes presenting with difficulty urinating. Patient states that he has had a history of kidney stones and he was hospitalized for one week at [facility] he was supposed to get a surgery but then the doctors told him that he no longer needed it. He states that he has had some suprapubic pain for the last 2-3 days associated with some difficulty urinating and pain on urination. No fever no chills no hematuria. No actual flank pain. No nausea or vomiting. He states that he feels like he cannot fully get all the urine out. Denies any risk of having any STD has not been sexually active for several years Patient was noted to be extremely thin, he states that he has been very thin for several years and he cannot seem to gain weight Allergies: Coded Allergies: No Known Allergies (Unverified , 02/18/16) Patient History Past Medical History: see triage record Past Surgical History: none Pertinent Family History: none Reviewed Nursing Documentation: PMH: Agreed; PSxH: Agreed Nursing Documentation-PMH Past Medical History: No History, Except For Hx Diabetes: Yes Hx Cancer: Yes - lukemia and thyroid Hx Gastrointestinal Problems: Yes - gall stones Review of Systems All Other Systems: negative except mentioned in HPI Physical Exam Vital Signs Date Time Temp Pulse Resp B/P (MAP) Pulse Ox O2 Delivery O2 Flow Rate FiO2 09/13/17 13:50 98.5 105 18 53/39 100 Room Air 98.4 Sp02 EP Interpretation: reviewed, normal General Appearance: other - Very thin-appearing young male awake and alert and nontoxic, and cooperative Head: normocephalic, atraumatic Eyes: bilateral eye normal inspection, bilateral eye PERRL, bilateral eye EOMI ENT: normal ENT inspection, normal pharynx, normal voice, moist mucus membranes Neck: normal inspection, full range of motion, supple Respiratory: normal inspection, lungs clear, normal breath sounds, no respiratory distress, no retraction, no wheezing, speaking full sentences, chest symmetrical Cardiovascular #1: normal inspection, regular rate, rhythm, no edema, normal capillary refill Cardiovascular #2: 2+ radial (R), 2+ radial (L) Gastrointestinal: normal inspection, non tender, soft, non-distended, no guarding Genitourinary: no CVA tenderness Musculoskeletal: normal inspection, back normal, normal range of motion, non- tender Neurologic: normal inspection, alert, oriented x3, responsive, motor strength/ tone normal, sensory intact, normal gait, speech normal Psychiatric: normal inspection, judgement/insight normal, memory normal Skin: normal inspection, normal color, no rash, warm/dry, well hydrated, normal turgor Medical Decision Making Diagnostic Impression: Primary Impression: UTI (urinary tract infection) ER Course 27-year-old male with suprapubic pain as well as difficulty urinating for 2-3 days . Differential Diagnosis: Gastritis, gastroenteritis, UTI/pyelo, nephrolithiasis At this time abdomen is soft nontender, not likely to have acute intra- abdominal surgical pathology, will hold CT for now. Plan: Basic labs, ua IVF ER course: Patient has remained stable during ED stay. given fluids +UTI Disposition: Patient is to be discharged to home. Patient is instructed to follow up with their primary care doctor within 5 days. Strict return precautions discussed with patient such as fever, chills, worsening/severe abdominal pain, nausea, vomiting, inability to take meds, which may indicate severe illness. Patient verbalizes understanding and agrees with plan. Please note that this Emergency Department Report was dictated using [employer] salesperson technology software, occasionally this can lead to erroneous entry secondary to interpretation by the dictation equipment Laboratory Tests Test 09/13/17 14:30 09/13/17 15:00 White Blood Count 4.2 K/UL (4.8-10.8) L Red Blood Count 3.64 M/UL (4.70-6.10) L Hemoglobin 11.5 G/DL (14.2-18.0) L Hematocrit 33.9 % (42.0-52.0) L Mean Corpuscular Volume 93 FL (80-99) Mean Corpuscular Hemoglobin 31.6 PG (27.0-31.0) H Mean Corpuscular Hemoglobin Concent 33.9 G/DL (32.0-36.0) Red Cell Distribution Width 11.0 % (11.6-14.8) L Platelet Count 119 K/UL (150-450) L Mean Platelet Volume 6.4 FL (6.5-10.1) L Neutrophils (%) (Auto) 50.1 % (45.0-75.0) Lymphocytes (%) (Auto) 37.2 % (20.0-45.0) Monocytes (%) (Auto) 8.1 % (1.0-10.0) Eosinophils (%) (Auto) 3.3 % (0.0-3.0) H Basophils (%) (Auto) 1.5 % (0.0-2.0) Sodium Level 139 MMOL/L (136-145) Potassium Level 4.4 MMOL/L (3.5-5.1) Chloride Level 104 MMOL/L (98-107) Carbon Dioxide Level 31 MMOL/L (21-32) Anion Gap 4 mmol/L (5-15) L Blood Urea Nitrogen 27 mg/dL (7-18) H Creatinine 0.8 MG/DL (0.55-1.30) Estimate Glomerular Filtration Rate > 60 mL/min (>60) Glucose Level 157 MG/DL (74-106) H Calcium Level 7.4 MG/DL (8.5-10.1) L Total Bilirubin 0.8 MG/DL (0.2-1.0) Aspartate Amino Transferase (AST) 18 U/L (15-37) Alanine Aminotransferase (ALT) 20 U/L (12-78) Alkaline Phosphatase 83 U/L (46-116) Total Protein 6.5 G/DL (6.4-8.2) Albumin 3.4 G/DL (3.4-5.0) Globulin 3.1 g/dL Albumin/Globulin Ratio 1.1 (1.0-2.7) Lipase 123 U/L (73-393) Thyroid Stimulating Hormone (TSH) 0.583 uiU/mL (0.358-3.740) Urine Color Yellow Urine Appearance Slightly cloudy Urine pH 6 (4.5-8.0) Urine Specific [place] 1.015 (1.005-1.035) Urine Protein 2+ (NEGATIVE) H Urine Glucose (UA) Negative (NEGATIVE) Urine Ketones Negative (NEGATIVE) Urine Occult Blood 5+ (NEGATIVE) H Urine Nitrite Negative (NEGATIVE) Urine Bilirubin Negative (NEGATIVE) Urine Urobilinogen 1 MG/DL (0.0-1.0) H Urine Leukocyte Esterase 1+ (NEGATIVE) H Urine RBC 5-10 /HPF (0 - 0) H Urine WBC 10-15 /HPF (0 - 0) H Urine Squamous Epithelial Cells Occasional /LPF Urine Amorphous Sediment Few /LPF (NONE) H Urine Bacteria Many /HPF (NONE) H Urine Fine Granular Casts 2-4 /LPF (NONE) H Urine Yeast Few /HPF (NONE) H Last Vital Signs Date Time Temp Pulse Resp B/P (MAP) Pulse Ox O2 Delivery O2 Flow Rate FiO2 09/13/17 14:00 98.4 83 22 99/69 100 Room Air 98.4 Disposition: HOME, SELF-CARE Condition: Improved Scripts Cephalexin* (KEFLEX*) 500 Mg Capsule 500 MG ORAL EVERY 6 HOURS for 7 Days, #28 CAP Prov: Jie Clarke M.D. 09/13/17 Jie Clarke M.D. Sep 13, 2017 14:29
[2017-09-13 14:51] LABS: BASOPHILS % (AUTO) 1.5 % (0.0-2.0); EOSINOPHILS % (AUTO) 3.3 % (0.0-3.0); HEMATOCRIT 33.9 % (42.0-52.0); HEMOGLOBIN 11.5 G/DL (14.2-18.0); LYMPHOCYTES % (AUTO) 37.2 % (20.0-45.0); MEAN CORPUSCULAR VOLUME 93 FL (80-99); MONOCYTES % (AUTO) 8.1 % (1.0-10.0); NEUTROPHILS % (AUTO) 50.1 % (45.0-75.0); PLATELET COUNT 119 K/UL (150-450); RED BLOOD COUNT 3.64 M/UL (4.70-6.10); WHITE BLOOD COUNT 4.2 K/UL (4.8-10.8)
[2017-09-13 15:05] LABS: ANION GAP 4 mmol/L (5-15); BLOOD UREA NITROGEN 27 mg/dL (7-18); CALCIUM 7.4 MG/DL (8.5-10.1); CARBON DIOXIDE 31 MMOL/L (21-32); CHLORIDE 104 MMOL/L (98-107); CREATININE 0.8 MG/DL (0.55-1.30); POTASSIUM 4.4 MMOL/L (3.5-5.1); SODIUM 139 MMOL/L (136-145)
[2017-09-13 15:18] LABS: ALANINE AMINOTRANSFERASE 20 U/L (12-78); ALBUMIN 3.4 G/DL (3.4-5.0); ALBUMIN/GLOBULIN RATIO 1.1 (1.0-2.7); ALKALINE PHOSPHATASE 83 U/L (46-116); ASPARTATE AMINO TRANSFERASE 18 U/L (15-37); BILIRUBIN,TOTAL 0.8 MG/DL (0.2-1.0)
[2017-09-13 15:22] LABS: BILIRUBIN, URINE NEGATIVE (NEGATIVE); GLUCOSE, URINE (UA) NEGATIVE (NEGATIVE); KETONES,URINE NEGATIVE (NEGATIVE); LEUKOCYTE ESTERASE ,URINE 1+ (NEGATIVE); NITRITE,URINE NEGATIVE (NEGATIVE); PH,URINE 6 (4.5-8.0); PROTEIN,URINE 2+ (NEGATIVE); UROBILINOGEN,URINE 1 MG/DL (0.0-1.0)
[2017-09-13 15:28] LABS: APPEARANCE,URINE SLIGHTLY CLOUDY; COLOR,URINE YELLOW
[2017-09-13] MEDS ORDERED: CEPHALEXIN500 MG ORAL (15:37)
[2017-09-13 16:00] VITALS: BP 108/70
== END 2017-09-13 16:00 | disposition home or self-care (01) ==
LOC: EMR 14:20
DX: N39.0 Urinary tract infection, site not specified (principal); E11.9 Type 2 diabetes mellitus without complications; C95.90 Leukemia, unspecified not having achieved remission; Z85.850 Personal history of malignant neoplasm of thyroid; Z87.442 Personal history of urinary calculi
CPT/HCPCS: 36415; 80053; 81003; 83690; 84443; 85025; 87086; 99283

== ENCOUNTER 2018-04-20 19:52 | Emergency (ER) | payer OTHER ==
[~2018-04-20] VITALS: Ht 154.9 cm; Wt 47.2 kg
[~2018-04-20 19:52] MED LIST changes: +CEPHALEXIN500 MG ORAL; +CYCLOBENZAPRINE10 MG ORAL; +IBUPROFEN200 M2 ORAL
[2018-04-20] MEDS ORDERED: CALCIUM500 M3 PO (19:59)
[2018-04-20 20:00] VITALS: BP 114/75
--- NOTE | 2018-04-20 20:00 | NUR ---
ED Nurse Note: Patient NEPTALI RA 29 from home c/o clinic told him he had low calcium and BS of 400 at 1600 today. Clinic gave insulin. EMS stated BS 96 on scene. Patient states he feels weak. pt denies pain. pt came with g 18 on left ac, blood drawn and was sent to lab. pt unable to give urine yet. will continue to monitor.
--- NOTE | 2018-04-20 20:11 | Emergency Room Report ---
History of Present Illness General Chief Complaint: Abnormal Labs Source: Patient, EMS (Stephen Wilburn MD) Present Illness HPI The patient is brought from home via EMS. He's complaining about generalized weakness. He has a history of diabetes and also recently had thyroid removed. He was seen at the clinic today and his blood sugar was 400. He was given insulin. Also they told him his calcium was low. Apparently his parathyroids were removed when his thyroid was removed. The patient complains of generalized weakness. Denies any diarrhea or dysuria. He's had chills today. There is no productive cough or chest pain. Accu-Chek in the field was 96. He has been seen in the past for hyperglycemia here. No fevers, chills, palpitations, nausea, vomiting, diarrhea, dysuria, abdominal pain, shortness of breath, depression, visual changes, headache. (Stephen Wilburn MD) Allergies: Coded Allergies: No Known Allergies (Unverified , 02/18/16) Patient History Past Medical History: see triage record Past Surgical History: other - Thyroid surgery Social History: Reports: drug use - THC; Denies: smoking Social History Narrative from home Reviewed Nursing Documentation: PMH: Agreed; PSxH: Agreed (Stephen Wilburn MD) Nursing Documentation-PMH Past Medical History: No History, Except For Hx Diabetes: Yes Hx Cancer: Yes - thyroid, leukemia, thyroidectomy Hx Gastrointestinal Problems: Yes - gall stones (Stephen Wilburn MD) Review of Systems All Other Systems: negative except mentioned in HPI (Stephen Wilburn MD) Physical Exam Vital Signs Date Time Temp Pulse Resp B/P (MAP) Pulse Ox O2 Delivery O2 Flow Rate FiO2 04/20/18 19:54 97.3 97 16 114/75 97 Room Air Sp02 EP Interpretation: reviewed, normal General Appearance: no apparent distress, GCS 15, Chronically Ill Head: normocephalic Eyes: bilateral eye PERRL, bilateral eye conjunctivae pale ENT: moist mucus membranes - Carries Neck: supple, no bony tend Respiratory: lungs clear, normal breath sounds Cardiovascular #1: regular rate, rhythm Cardiovascular #2: 2+ radial (R) Gastrointestinal: normal inspection, normal bowel sounds, non tender, no mass, non-distended Musculoskeletal: back normal, gait/station normal, normal range of motion Neurologic: alert, oriented x3, motor strength/tone normal, DTRs symmetric - Slightly hyperreflexic, sensory intact, grossly normal Psychiatric: mood/affect normal Skin: warm/dry, other - Vazquez (Stephen Wilburn MD) Medical Decision Making Diagnostic Impression: Primary Impression: Hypocalcemia Additional Impressions: Hypothyroidism Qualified Codes: E89.0 - Postprocedural hypothyroidism Hypoparathyroidism Qualified Codes: E20.8 - Other hypoparathyroidism Hypoglycemia Diabetes Qualified Codes: E10.8 - Type 1 diabetes mellitus with unspecified complications ER Course Patient presents with weakness with history of diabetes and hypocalcemia. Differential includes acute myocardial injury, dehydration, diabetic ketoacidosis, hypocalcemia amongst others. Evaluation will be with EKG, chest x -ray and labs. Hypocalcemia, hypoglycemia, hypothyroid. D50W, hydrocortisone, synthroid and calcium gluconate ordered. Some improvement with treatment however needs continued calcium infusion. Also blood sugars need to continue to be checked. Patient admitted to telemetry under the care of Dr. Tavares. Signed out to Dr Patton. Laboratory Tests Test 04/20/18 20:20 04/20/18 20:55 04/20/18 22:00 White Blood Count 7.4 K/UL (4.8-10.8) Red Blood Count 3.74 M/UL (4.70-6.10) L Hemoglobin 11.5 G/DL (14.2-18.0) L Hematocrit 33.8 % (42.0-52.0) L Mean Corpuscular Volume 90 FL (80-99) Mean Corpuscular Hemoglobin 30.7 PG (27.0-31.0) Mean Corpuscular Hemoglobin Concent 34.0 G/DL (32.0-36.0) Red Cell Distribution Width 11.1 % (11.6-14.8) L Platelet Count 131 K/UL (150-450) L Mean Platelet Volume 6.5 FL (6.5-10.1) Neutrophils (%) (Auto) 71.1 % (45.0-75.0) Lymphocytes (%) (Auto) 19.8 % (20.0-45.0) L Monocytes (%) (Auto) 6.9 % (1.0-10.0) Eosinophils (%) (Auto) 1.2 % (0.0-3.0) Basophils (%) (Auto) 0.9 % (0.0-2.0) Prothrombin Time 10.3 SEC (9.30-11.50) Prothrombin Time INR 1.0 (0.9-1.1) PTT 27 SEC (23-33) Sodium Level 145 MMOL/L (136-145) Potassium Level 3.4 MMOL/L (3.5-5.1) L Chloride Level 107 MMOL/L (98-107) Carbon Dioxide Level 28 MMOL/L (21-32) Anion Gap 10 mmol/L (5-15) Blood Urea Nitrogen 28 mg/dL (7-18) H Creatinine 1.0 MG/DL (0.55-1.30) Estimate Glomerular Filtration Rate > 60 mL/min (>60) Glucose Level 59 MG/DL (74-106) L Lactic Acid Level 2.30 mmol/L (0.4-2.0) H 1.50 mmol/L (0.66-2.22) Calcium Level 6.2 MG/DL (8.5-10.1) L Ionized Calcium (Measured) 0.80 mmol/L (1.10-1.35) L Phosphorus Level 5.4 MG/DL (2.5-4.9) H Magnesium Level 1.8 MG/DL (1.8-2.4) Total Bilirubin 0.6 MG/DL (0.2-1.0) Aspartate Amino Transferase (AST) 21 U/L (15-37) Alanine Aminotransferase (ALT) 31 U/L (12-78) Alkaline Phosphatase 135 U/L (46-116) H Total Creatine Kinase 267 U/L (26-308) Troponin I 0.000 ng/mL (0.000-0.056) Pro-B-Type Natriuretic Peptide 172 pg/mL (0-125) H Total Protein 6.7 G/DL (6.4-8.2) Albumin 3.4 G/DL (3.4-5.0) Globulin 3.3 g/dL Albumin/Globulin Ratio 1.0 (1.0-2.7) Thyroid Stimulating Hormone (TSH) 3.968 uiU/mL (0.358-3.740) Urine Color Pale yellow Urine Appearance Clear Urine pH 5 (4.5-8.0) Urine Specific [place] 1.010 (1.005-1.035) Urine Protein 2+ (NEGATIVE) H Urine Glucose (UA) 3+ (NEGATIVE) H Urine Ketones Negative (NEGATIVE) Urine Blood 5+ (NEGATIVE) H Urine Nitrite Negative (NEGATIVE) Urine Bilirubin Negative (NEGATIVE) Urine Urobilinogen Normal MG/DL (0.0-1.0) Urine Leukocyte Esterase Negative (NEGATIVE) Urine RBC 5-10 /HPF (0 - 0) H Urine WBC 0 /HPF (0 - 0) Urine Squamous Epithelial Cells Occasional /LPF Urine Bacteria None /HPF (NONE) Urine Opiates Screen Negative (NEGATIVE) Urine Barbiturates Screen Negative (NEGATIVE) Phencyclidine (PCP) Screen Negative (NEGATIVE) Urine Amphetamines Screen Negative (NEGATIVE) Urine Benzodiazepines Screen Negative (NEGATIVE) Urine Cocaine Screen Negative (NEGATIVE) Urine Marijuana (THC) Screen Positive (NEGATIVE) H Microbiology Date/Time Source Procedure Growth Status 04/20/18 20:10 Nasal Nares Influenza Types A,B Antigen (KHADAR) - Final Complete (Stephen Wilburn MD) ER Course This patient signout to me for hypocalcemia and hypoglycemia. Patient was waiting for a bed. He said he felt fine and wants to go home. He has follow- up with his doctor soon. He said he has similar symptom in the past. He felt comfortable going home. She does not want to be admitted. (Jeet Patton MD) EKG Diagnostic Results Rate: normal Rhythm: NSR ST Segments: no acute changes - NSSTTW changes (Stephen Wilburn MD) Rhythm Strip Diag. Results EP Interpretation: yes Rhythm: NSR, no PVC's, no ectopy (Stephen Wilburn MD) Chest X-Ray Diagnostic Results Chest X-Ray Diagnostic Results : Chest X-Ray Ordered: Yes # of Views/Limited/Complete: 1 View Indication: Other EP Interpretation: Yes Interpretation: no consolidation, no effusion, no pneumothorax Impression: No acute disease Electronically Signed by: Electronically signed by Stephen Wilburn MD (Stephen Wilburn MD) Status: improved (Stephen Wilburn MD) Disposition: HOME, SELF-CARE Condition: Stable Patient Instructions: Hypocalcemia, Adult Additional Instructions: Follow-up with your DrEver in 2 to 3 days for recheck. Return if symptom worsen. Stephen Wilburn MD Apr 20, 2018 20:11 Jeet Patton MD Apr 21, 2018 00:53
[2018-04-20 20:58] LABS: BASOPHILS % (AUTO) 0.9 % (0.0-2.0); EOSINOPHILS % (AUTO) 1.2 % (0.0-3.0); HEMATOCRIT 33.8 % (42.0-52.0); HEMOGLOBIN 11.5 G/DL (14.2-18.0); LYMPHOCYTES % (AUTO) 19.8 % (20.0-45.0); MEAN CORPUSCULAR VOLUME 90 FL (80-99); MONOCYTES % (AUTO) 6.9 % (1.0-10.0); NEUTROPHILS % (AUTO) 71.1 % (45.0-75.0); PLATELET COUNT 131 K/UL (150-450); RED BLOOD COUNT 3.74 M/UL (4.70-6.10); RED CELL DISTRIBUTION WIDTH 11.1 % (11.6-14.8); WHITE BLOOD COUNT 7.4 K/UL (4.8-10.8)
[2018-04-20 21:14] VITALS: BP 144/92
[2018-04-20 21:25] LABS: ANION GAP 10 mmol/L (5-15); BLOOD UREA NITROGEN 28 mg/dL (7-18); CALCIUM 6.2 MG/DL (8.5-10.1); CARBON DIOXIDE 28 MMOL/L (21-32); CHLORIDE 107 MMOL/L (98-107); POTASSIUM 3.4 MMOL/L (3.5-5.1); SODIUM 145 MMOL/L (136-145)
[2018-04-20 21:28] LABS: ALANINE AMINOTRANSFERASE 31 U/L (12-78); ALBUMIN 3.4 G/DL (3.4-5.0); ALKALINE PHOSPHATASE 135 U/L (46-116); ASPARTATE AMINO TRANSFERASE 21 U/L (15-37); BILIRUBIN,TOTAL 0.6 MG/DL (0.2-1.0); CREATINE KINASE 267 U/L (26-308); PHOSPHORUS 5.4 MG/DL (2.5-4.9)
[2018-04-20 21:33] LABS: APPEARANCE,URINE CLEAR; BILIRUBIN, URINE NEGATIVE (NEGATIVE); COLOR,URINE PALE YELLOW; GLUCOSE, URINE (UA) 3+ (NEGATIVE); KETONES,URINE NEGATIVE (NEGATIVE); LEUKOCYTE ESTERASE ,URINE NEGATIVE (NEGATIVE); NITRITE,URINE NEGATIVE (NEGATIVE); PH,URINE 5 (4.5-8.0); PROTEIN,URINE 2+ (NEGATIVE); UROBILINOGEN,URINE NORMAL MG/DL (0.0-1.0)
--- NOTE | 2018-04-20 21:37 | NUR ---
ED Nurse Note: sister of pt left phone number [phone]
[2018-04-20] MEDS ORDERED: Hydrocortisone 100mg Inj IV ONE (22:15)
[2018-04-20] MEDS ORDERED: Calcium Gluconate 10% 1 GM in NS 110 ML IV ONE (23:15)
[2018-04-20 23:54] VITALS: BP 133/98
[2018-04-21 00:55] VITALS: BP 133/98
--- NOTE | 2018-04-21 00:55 | NUR ---
ER DISCHARGE NOTE: Patient is cleared to be discharged per ERMD, pt is aox4, on room air, with stable vital signs. pt was given dc and prescription instructions, pt was able to verbalize understanding, pt id band and iv site removed without complications. pt is able to ambulate with steady gait. pt took all belongings.
--- NOTE | 2018-04-21 09:14 | Diagnostic Imaging Report ---
Indication: Chest pain Technique: One view of the chest Comparison: 06/27/2016 Findings: The lungs and pleural spaces are clear. The heart size is normal. There are surgical clips in the neck again demonstrated. Impression: No acute process
--- NOTE | 2018-04-21 15:04 | Cardiology Report ---
APPROVED REPORT EKG Measurement Heart [id number] Normal sinus rhythm Nonspecific T wave abnormality Abnormal ECG
== END 2018-04-21 00:55 | disposition home or self-care (01) ==
LOC: EDBD 19:52 → EMR 20:26 → EDBEDREQ 04-21 00:50 → EDBEDREQSVC 04-21 00:50 → EMR 04-21 00:55
DX: E83.51 Hypocalcemia (principal); E03.9 Hypothyroidism, unspecified; E20.9 Hypoparathyroidism, unspecified; E11.65 Type 2 diabetes mellitus with hyperglycemia; E11.649 Type 2 diabetes mellitus with hypoglycemia without coma
CPT/HCPCS: 36415; 71045; 80053; 80307; 81003; 82330; 82550; 82962; 83605; 83735; 83880; 84100; 84443; 84484; 85025; 85610; 85730; 86710; 86850; 86900; 86901; 87040; 93005; 96361; 96365; 96375; 99284; J0610; J1720

== ENCOUNTER 2018-08-26 20:05 | Emergency (ER) | payer OTHER ==
[~2018-08-26] VITALS: Ht 160 cm; Wt 45.4 kg
[~2018-08-26 20:05] MED LIST changes: +CALCIUM500 M3 PO
--- NOTE | 2018-08-26 20:08 | NUR ---
ED Nurse Note: Pt BIBA RA 29 from home, d/t hypotension and weakness with n/v. RA 29 administered 400ml NS bolus to increase BP. Pt c/o throat pain 07/14. Pt has hx of leukemia, thyroid CA and DM. Pt stated he took no insulin today because he was feeling ill. Will assess and carry out ER MD's orders.
[2018-08-26 20:10] VITALS: BP 104/67
--- NOTE | 2018-08-26 20:15 | NUR ---
ED Nurse Note: IV ACCESS ESTABLISHED TRAILER PARK MANAGER. BLOOD COLLECTED ;SENT DOWN TO LAB.
[2018-08-26 20:34] LABS: HEMOGLOBIN 10.7 G/DL (14.2-18.0); MEAN CORPUSCULAR VOLUME 84 FL (80-99); PLATELET COUNT 161 K/UL (150-450); RED BLOOD COUNT 3.44 M/UL (4.70-6.10); RED CELL DISTRIBUTION WIDTH 10.7 % (11.6-14.8); WHITE BLOOD COUNT 11.2 K/UL (4.8-10.8)
[2018-08-26 21:03] LABS: ALANINE AMINOTRANSFERASE 22 U/L (12-78); ALBUMIN 3.9 G/DL (3.4-5.0); ALBUMIN/GLOBULIN RATIO 1.4 (1.0-2.7); ALKALINE PHOSPHATASE 131 U/L (46-116); ANION GAP 13 mmol/L (5-15); ASPARTATE AMINO TRANSFERASE 17 U/L (15-37); BILIRUBIN,TOTAL 1.2 MG/DL (0.2-1.0); BLOOD UREA NITROGEN 48 mg/dL (7-18); CALCIUM 5.6 MG/DL (8.5-10.1); CARBON DIOXIDE 24 MMOL/L (21-32); CHLORIDE 104 MMOL/L (98-107); CREATININE 1.5 MG/DL (0.55-1.30); POTASSIUM 3.9 MMOL/L (3.5-5.1); SODIUM 141 MMOL/L (136-145)
[2018-08-26 21:06] LABS: BILIRUBIN,DIRECT 0.2 MG/DL (0.0-0.3)
--- NOTE | 2018-08-26 21:13 | Emergency Room Report ---
History of Present Illness General Chief Complaint: Generalized Weakness Source: Patient Present Illness HPI Patient is a 28-year-old male who presented after increased generalized weakness and vomiting. Patient had recent heavy alcohol intake. He had prior history of hypoparathyroidism due to prior surgery. He had been noted to have increased generalized weakness as well as pain. Patient reports drinking some wine prior to onset of vomiting. He had reportedly been compliant with his calcium. Patient reports having some increased dark emesis. He denies any bloody stools. Denies any abdominal pain. He had a prior history of diabetes. Blood sugar has been checked by EMS was noted to be approximately 300.Patient had gradual onset of symptoms. He had previous history of thyroid cancer and had prior history of thyroidectomy. He does not know what dose of thyroid medication is currently taking. Allergies: Coded Allergies: No Known Allergies (Unverified , 02/18/16) Patient History Past Medical History: see triage record, DM, other - thyroidectomy Reviewed Nursing Documentation: PMH: Agreed; PSxH: Agreed Nursing Documentation-PMH Past Medical History: No History, Except For Hx Diabetes: Yes Hx Cancer: Yes - thyroid, leukemia, thyroidectomy Hx Gastrointestinal Problems: Yes - gall stones Review of Systems All Other Systems: negative except mentioned in HPI Physical Exam Vital Signs Date Time Temp Pulse Resp B/P (MAP) Pulse Ox O2 Delivery O2 Flow Rate FiO2 08/26/18 20:02 98.4 104 16 104/70 (81) 100 Room Air General Appearance: thin, Chronically Ill ENT: other - poor dentition Neck: other - thyroidectomy scar Respiratory: chest non-tender, lungs clear, normal breath sounds, no rhonchi Cardiovascular #1: normal inspection, no edema Gastrointestinal: normal inspection, normal bowel sounds, non tender, soft Musculoskeletal: normal inspection Neurologic: normal inspection, alert, oriented x3, responsive Medical Decision Making Diagnostic Impression: Primary Impression: Abdominal pain Additional Impressions: Diabetes Hypocalcemia ER Course Patient presented for abdominal pain and vomiting. Differential diagnosis included but was not limited to gastritis, diabetic ketoacidosis, hypocalcemia, pancreatitis among others. Patient was awake and alert. He was started on IV acid blockers due to dark colored emesis. Patient was noted to be significantly hypocalcemic and was given IV calcium. Patient was noted to be stable for transfer. Patient will be [facility] for continuity of care. Labs Test 6/22/19 20:15 08/26/18 21:07 White Blood Count 11.2 K/UL (4.8-10.8) Red Blood Count 3.44 M/UL (4.70-6.10) Hemoglobin 10.7 G/DL (14.2-18.0) Hematocrit 29.0 % (42.0-52.0) Mean Corpuscular Volume 84 FL (80-99) Mean Corpuscular Hemoglobin 31.0 PG (27.0-31.0) Mean Corpuscular Hemoglobin Concent 36.8 G/DL (32.0-36.0) Red Cell Distribution Width 10.7 % (11.6-14.8) Platelet Count 161 K/UL (150-450) Mean Platelet Volume 6.0 FL (6.5-10.1) Neutrophils (%) (Auto) % (45.0-75.0) Lymphocytes (%) (Auto) % (20.0-45.0) Monocytes (%) (Auto) % (1.0-10.0) Eosinophils (%) (Auto) % (0.0-3.0) Basophils (%) (Auto) % (0.0-2.0) Differential Total Cells Counted 100 Neutrophils % (Manual) 80 % (45-75) Lymphocytes % (Manual) 15 % (20-45) Monocytes % (Manual) 5 % (1-10) Eosinophils % (Manual) 0 % (0-3) Basophils % (Manual) 0 % (0-2) Band Neutrophils 0 % (0-8) Platelet Estimate Adequate Platelet Morphology Normal Red Blood Cell Morphology Normal Sodium Level 141 MMOL/L (136-145) Potassium Level 3.9 MMOL/L (3.5-5.1) Chloride Level 104 MMOL/L (98-107) Carbon Dioxide Level 24 MMOL/L (21-32) Anion Gap 13 mmol/L (5-15) Blood Urea Nitrogen 48 mg/dL (7-18) Creatinine 1.5 MG/DL (0.55-1.30) Estimat Glomerular Filtration Rate 55.0 mL/min (>60) Glucose Level 249 MG/DL (74-106) Calcium Level 5.6 MG/DL (8.5-10.1) Magnesium Level 1.8 MG/DL (1.8-2.4) Total Bilirubin 1.2 MG/DL (0.2-1.0) Direct Bilirubin 0.2 MG/DL (0.0-0.3) Aspartate Amino Transf (AST/SGOT) 17 U/L (15-37) Alanine Aminotransferase (ALT/SGPT) 22 U/L (12-78) Alkaline Phosphatase 131 U/L (46-116) Total Protein 6.7 G/DL (6.4-8.2) Albumin 3.9 G/DL (3.4-5.0) Globulin 2.8 g/dL Albumin/Globulin Ratio 1.4 (1.0-2.7) Acetone Level Negative (NEGATIVE) Urine Color Pale yellow Urine Appearance Clear Urine pH 5 (4.5-8.0) Urine Specific [place] 1.015 (1.005-1.035) Urine Protein 3+ (NEGATIVE) Urine Glucose (UA) 4+ (NEGATIVE) Urine Ketones Negative (NEGATIVE) Urine Blood 4+ (NEGATIVE) Urine Nitrite Negative (NEGATIVE) Urine Bilirubin Negative (NEGATIVE) Urine Urobilinogen Normal MG/DL (0.0-1.0) Urine Leukocyte Esterase Negative (NEGATIVE) Urine RBC 2-4 /HPF (0 - 0) Urine WBC 0 /HPF (0 - 0) Urine Squamous Epithelial Cells Occasional /LPF Urine Bacteria Occasional /HPF (NONE) EKG Diagnostic Results Rate: tachycardiac Rhythm: NSR ST Segments: no acute changes Last Vital Signs Date Time Temp Pulse Resp B/P (MAP) Pulse Ox O2 Delivery O2 Flow Rate FiO2 08/26/18 20:02 98.4 104 16 104/70 (81) 100 Room Air Status: improved Disposition: XFER [facility]-TRM HOSP Condition: Stable Referrals: [facility],REFERRING (PCP) To [place] MD Aug 26, 2018 21:13
[2018-08-26 21:29] LABS: APPEARANCE,URINE CLEAR; BILIRUBIN, URINE NEGATIVE (NEGATIVE); COLOR,URINE PALE YELLOW; GLUCOSE, URINE (UA) 4+ (NEGATIVE); KETONES,URINE NEGATIVE (NEGATIVE); LEUKOCYTE ESTERASE ,URINE NEGATIVE (NEGATIVE); NITRITE,URINE NEGATIVE (NEGATIVE); PH,URINE 5 (4.5-8.0); PROTEIN,URINE 3+ (NEGATIVE); UROBILINOGEN,URINE NORMAL MG/DL (0.0-1.0)
[2018-08-26 21:30] VITALS: BP 106/77
[2018-08-26] MEDS ORDERED: Calcium Gluconate 1gm/10ml vial IVP ONE (21:30)
--- NOTE | 2018-08-26 21:45 | NUR ---
ED Nurse Note: Escorted pt to restroom. Pt ambulatory and steady. Will assist back on director of online education once finished.
[2018-08-26 23:00] VITALS: BP 124/81
--- NOTE | 2018-08-26 23:41 | NUR ---
ED Nurse Note: Pt sleeping. No distress noted. Will continue to monitor.
--- NOTE | 2018-08-26 23:56 | NUR ---
ED Nurse Note: Gave report to Myla HANKS at [facility]. Gave her ETA of 0130 for pickup.
[2018-08-27 00:30] VITALS: BP 107/79
--- NOTE | 2018-08-27 01:25 | NUR ---
ED Nurse Note: Pt in room with mother at bedside. No dsitres noted. Pt's needs met. Will continue to monitor.
[2018-08-27 01:38] VITALS: BP 116/80
[2018-08-27 01:57] VITALS: BP 116/80
--- NOTE | 2018-08-27 02:01 | NUR ---
ED Nurse Note: Pt cleared by health care Provider for transfer to [facility]. Transfer instruction packet was given and explained to pt and ambulance verbalized understanding of report. Pt is AAO x4, ambulatory but transported on gurney and left with all personal belongings.
== END 2018-08-27 01:59 | disposition short-term general hospital (02) ==
LOC: EDBD 20:05 → EMR 20:22
DX: R10.9 Unspecified abdominal pain (principal); R11.10 Vomiting, unspecified; E11.649 Type 2 diabetes mellitus with hypoglycemia without coma; Z85.850 Personal history of malignant neoplasm of thyroid; Z85.6 Personal history of leukemia; E89.0 Postprocedural hypothyroidism; R00.0 Tachycardia, unspecified
CPT/HCPCS: 36415; 80053; 81003; 82009; 82248; 82962; 83735; 85007; 85025; 93005; 96361; 96374; 96375; 99285; J0610; J2405; S0028